=== PATIENT | male | born 1955 | race Caucasian/White ===

== ENCOUNTER 2021-03-05 15:19 | Emergency (ER) | payer MEDICARE ==
[2021-03-05 16:59] VITALS: RESP 20
--- NOTE | 2021-03-05 17:00 | ED ---
General Adult HPI - General Chief complaint: Fall Stated complaint: Fall Time Seen by Provider: 03/05/21 16:39 Source: patient, RN notes reviewed Mode of arrival: ambulatory Limitations: no limitations - History of Present Illness Initial comments: Patient is a pleasant 66-year-old male presenting to the emergency department following a fall. Patient states he was walking his dog when he was tripped. Patient landed on his back however has discomfort of his neck. Patient does have chronic neck and back problems. Patient states his back discomfort is not worse than normal. Patient states his neck discomfort is similar to previous but somewhat worse. Patient states he does have history of neck problems causing a headache feeling stabbing and blurred vision. Patient states he had his again today. Patient states he is actually been having these is 2004 and previously took OxyContin for this. Patient does have history of lumbar surgery and has been told previously should have neck surgery as well. No weakness. Patient denies any head injury. Patient denies any direct trauma to his neck - Related Data Home Medications Medication Instructions Recorded Confirmed Ascorbic Acid [Vitamin C] 500 mg PO DAILY 03/05/21 03/05/21 Cholecalciferol [Vitamin D3 (25 25 mcg PO DAILY 03/05/21 03/05/21 Mcg = 1000 Iu)] Cyanocobalamin (Vitamin B-12) 5,000 mcg PO DAILY 03/05/21 03/05/21 [Vitamin B12] Previous Rx's Medication Instructions Recorded Cyclobenzaprine [Flexeril] 10 mg PO TID PRN #12 tablet 03/05/21 Allergies Allergy/AdvReac Type Severity Reaction Status Date / Time No Known Allergies Allergy Verified 03/05/21 17:29 Review of Systems ROS Statement: Those systems with pertinent positive or pertinent negative responses have been documented in the HPI. ROS Other: All systems not noted in ROS Statement are negative. Constitutional: Denies: fever Eyes: Denies: eye pain ENT: Reports: other (Patient had blurry vision with his fall when his pain was severe). Denies: ear pain Cardiovascular: Denies: chest pain Endocrine: Denies: fatigue Gastrointestinal: Denies: abdominal pain Genitourinary: Denies: dysuria Musculoskeletal: Reports: as per HPI Skin: Denies: rash Neurological: Reports: as per HPI. Denies: weakness Past Medical History Past Medical History: No Reported History History of Any Multi-Drug Resistant Organisms: None Reported Past Surgical History: Back Surgery, Joint Replacement, Orthopedic Surgery Past Psychological History: No Psychological Hx Reported Smoking Status: Current every day smoker Past Alcohol Use History: None Reported Past Drug Use History: None Reported General Exam Limitations: no limitations General appearance: alert, in no apparent distress Head exam: Present: atraumatic Eye exam: Present: normal appearance, PERRL, EOMI ENT exam: Present: normal oropharynx Neck exam: Present: tenderness (Mild diffuse tenderness posterior and right paraspinal) Respiratory exam: Present: normal lung sounds bilaterally Cardiovascular Exam: Present: regular rate, normal rhythm GI/Abdominal exam: Present: soft. Absent: tenderness Extremities exam: Present: normal inspection, full ROM. Absent: tenderness Back exam: Present: normal inspection. Absent: vertebral tenderness Neurological exam: Present: alert, oriented X3, CN II-XII intact. Absent: motor sensory deficit Expanded Sensory exam: Upper Extremity Light Touch: Normal, Lower Extremity Light Touch: Normal Motor strength exam: RUE: 5, LUE: 5, RLE: 5, LLE: 5 Psychiatric exam: Present: normal affect, normal mood Skin exam: Present: normal color Course Vital Signs 03/05/21 16:18 Temperature 98.1 F Pulse Rate 92 Respiratory 20 Rate Blood Pressure 131/72 O2 Sat by Pulse 97 Oximetry Medical Decision Making - Medical Decision Making Patient reevaluated and updated. - Radiology Data Radiology results: image reviewed (Cervical spine x-ray shows multilevel spondylitic changes with large anterior osteophyte pronation. No fracture.) Disposition Clinical Impression: Fall, Cervical strain Disposition: HOME SELF-CARE Condition: Stable Instructions (If sedation given, give patient instructions): Cervical Strain (ED) Additional Instructions: Prescription for muscle relaxers has been sent to pharmacy. Please follow-up with primary care physician and neck doctor in the next couple days for recheck, number provided. Return for increased pain, weakness, worsening or changing symptoms or other concerns. Prescriptions: Cyclobenzaprine [Flexeril] 10 mg PO TID PRN #12 tablet PRN Reason: Pain Is patient prescribed a controlled substance at d/c from ED?: No Referrals: Ovidio Escamilla MD [STAFF PHYSICIAN] - 1-2 days Sami Treadwell DO [Doctor of Osteopathic Medicine] - 1-2 days Time of Disposition: 18:14
--- NOTE | 2021-03-05 17:45 | XR ---
EXAMINATION TYPE: XR cervical spine comp DATE OF EXAM: 03/05/2021 COMPARISON: NONE HISTORY: Pain TECHNIQUE: 5 views FINDINGS: Cervical vertebra have normal alignment. There is degenerative disc space narrowing from C3 to C7. There is large hypertrophic anterior bridging osteophyte formation in the mid and lower cervi mariah spine. There is no compression fracture. There are no cervical ribs. There is uncovertebral spurr ing and mild bilateral neural foraminal narrowing at levels from C4 to C6. IMPRESSION: Multilevel spondylotic changes with large anterior osteophyte formation. No fracture.
[2021-03-05] MEDS ORDERED: ORPHENADRINE 30 MG/ML 2 ML VIAL IM STA (18:12)
[2021-03-05] MEDS ORDERED: HYDROmorphone 1 MG/ML 1 ML SYRINGE IM STA (18:12)
[2021-03-05 18:45] VITALS: BP 115/68; PULSE 88; TEMP 98
== END 2021-03-05 18:34 | disposition home or self-care (01) ==
LOC: EC 15:19
DX: S16.1XXA Strain of muscle, fascia and tendon at neck level, initial encounter (principal); F17.200 Nicotine dependence, unspecified, uncomplicated; W01.0XXA Fall on same level from slipping, tripping and stumbling without subsequent striking against object, initial encounter; Y93.K1 Activity, walking an animal
CPT/HCPCS: 72050; 96372 ×2; 99284; J2360; J1170

== ENCOUNTER 2021-03-19 15:41 | Emergency (ER) | payer MEDICARE, OTHER ==
[2021-03-19 16:47] VITALS: RESP 20; TEMP 97.5
[2021-03-19 17:57] LABS: Basophils % (A) 1 %; Eosinophils # (A) 0.2 k/uL (0-0.7); Eosinophils % (A) 3 %; HGB 17.2 gm/dL (13.0-17.5); Lymphocytes # (A) 0.9 k/uL (1.0-4.8); Lymphocytes % (A) 14 %; MCH 31.6 pg (25.0-35.0); MCHC 33.8 g/dL (31.0-37.0); MCV 93.4 fL (80.0-100.0); Monocytes # (A) 0.5 k/uL (0-1.0); Monocytes % (A) 8 %; Neutrophils # (A) 4.5 k/uL (1.3-7.7); Neutrophils % (A) 72 %; Platelet Count 189 k/uL (150-450); RBC 5.46 m/uL (4.30-5.90); RDW 12.6 % (11.5-15.5); WBC 6.3 k/uL (3.8-10.6)
[2021-03-19 18:06] LABS: INR 0.9 (<1.2); Partial Thromboplastin Time 24.4 sec (22.0-30.0); Prothrombin Time 9.8 sec (9.0-12.0)
[2021-03-19 18:12] LABS: ALT 36 U/L (4-49); AST 43 U/L (17-59); African American GFR (CKD) >90 (>60 ml/min/1.73 sqM); Albumin 4.5 g/dL (3.5-5.0); Alkaline Phosphatase 87 U/L (38-126); Anion Gap 10 mmol/L; Blood Urea Nitrogen 19 mg/dL (9-20); Calcium 9.2 mg/dL (8.4-10.2); Carbon Dioxide 23 mmol/L (22-30); Chloride 102 mmol/L (98-107); Glucose 127 mg/dL (74-99); Non-African American GFR(CKD) 85 (>60 ml/min/1.73 sqM); Potassium 3.9 mmol/L (3.5-5.1); Sodium 135 mmol/L (137-145); Total Bilirubin 0.7 mg/dL (0.2-1.3); Total Protein 7.8 g/dL (6.3-8.2)
--- NOTE | 2021-03-19 20:01 | ED ---
General Adult HPI - General Chief complaint: Chest Pain Stated complaint: Nausea/Vomiting/Diarrhea Time Seen by Provider: 03/19/21 19:17 Source: patient Mode of arrival: ambulatory Limitations: no limitations - History of Present Illness Initial comments: 66 year-old male patient presents to the emergency department for evaluation of diarrhea, lack of appetite, and chest pain. Patient states that diarrhea started three days ago. Reports it being explosive. States he has abdominal cramping before diarrhea episodes. States he has constant left side pain. Denies fever or chills. States he had chest pain starting this morning and last until just about an hour ago. He denies any shortness of breath, sweats, or dizziness. Patient denies any recent rash, cough, shortness of breath, chest pain, back pain, numbness, tingling, dizziness, weakness, hematuria, dysuria, urinary urgency, urinary frequency, headache, visual changes, or any other complaints. - Related Data Home Medications Medication Instructions Recorded Confirmed No Known Home Medications 03/19/21 03/19/21 Allergies Allergy/AdvReac Type Severity Reaction Status Date / Time No Known Allergies Allergy Verified 03/19/21 22:26 Review of Systems ROS Statement: Those systems with pertinent positive or pertinent negative responses have been documented in the HPI. ROS Other: All systems not noted in ROS Statement are negative. Past Medical History Past Medical History: No Reported History History of Any Multi-Drug Resistant Organisms: None Reported Past Surgical History: Back Surgery, Joint Replacement, Orthopedic Surgery Past Psychological History: Anxiety, Bipolar, Depression Smoking Status: Current every day smoker Past Alcohol Use History: None Reported Past Drug Use History: None Reported General Exam Limitations: no limitations General appearance: alert, in no apparent distress, other (This is a well devloped, well nourished adult male patient in no acute distress. V/S upon presentation are temperature 97.5F, pulse 101, respirations 20, blood pressure 108/74, pulse ox 98% on room air.) ENT exam: Present: normal exam, normal oropharynx, mucous membranes moist Respiratory exam: Present: normal lung sounds bilaterally. Absent: respiratory distress, wheezes, rales, rhonchi, stridor Cardiovascular Exam: Present: normal rhythm, tachycardia, normal heart sounds. Absent: systolic murmur, diastolic murmur, rubs, gallop, clicks GI/Abdominal exam: Present: soft, tenderness (Left lower quadrant), normal bowel sounds. Absent: distended, guarding, rebound, rigid Neurological exam: Present: alert, oriented X3, CN II-XII intact Psychiatric exam: Present: normal affect, normal mood Skin exam: Present: warm, dry, intact, normal color. Absent: rash Course Vital Signs 03/19/21 03/19/21 03/19/21 16:43 20:44 23:33 Temperature 97.5 F L Pulse Rate 101 H 84 86 Respiratory 20 20 20 Rate Blood Pressure 108/74 128/93 134/84 O2 Sat by Pulse 98 98 96 Oximetry EKG Findings - EKG Comments: EKG Findings:: EKG obtained at 1722 shows normal sinus rhythm with a ventricular rate of 83, TX interval 138, QRS duration 84, QT 390, QTc 458. No evidence of ST elevation or depression. Medical Decision Making - Medical Decision Making 66-year-old male patient presents to the emergency department today for evaluation of abdominal pain and diarrhea for the last 3 days. Did have some chest pain this morning. Physical examination did reveal some left lower quadrant abdominal tenderness. Labs reviewed and are unremarkable. CT abdomen and pelvis was negative. EKG was unremarkable. Troponin negative. He'll be d ischarged follow-up with the primary care physician for recheck in 1-2 days. Return parameters were discussed in detail. He verbalizes understanding and agrees with this plan. Case discussed with my attending Dr. Milan. - Lab Data Result diagrams: 03/19/21 17:50 03/19/21 17:50 Lab Results 03/19/21 03/19/21 03/19/21 Range/Units 17:29 17:50 17:50 WBC 6.3 (3.8-10.6) k/uL RBC 5.46 (4.30-5.90) m/uL Hgb 17.2 (13.0-17.5) gm/dL Hct 51.0 (39.0-53.0) % MCV 93.4 (80.0-100.0) fL MCH 31.6 (25.0-35.0) pg MCHC 33.8 (31.0-37.0) g/dL RDW 12.6 (11.5-15.5) % Plt Count 189 (150-450) k/uL MPV 8.0 Neutrophils % 72 % Lymphocytes % 14 % Monocytes % 8 % Eosinophils % 3 % Basophils % 1 % Neutrophils # 4.5 (1.3-7.7) k/uL Lymphocytes # 0.9 L (1.0-4.8) k/uL Monocytes # 0.5 (0-1.0) k/uL Eosinophils # 0.2 (0-0.7) k/uL Basophils # 0.0 (0-0.2) k/uL PT 9.8 (9.0-12.0) sec INR 0.9 (<1.2) APTT 24.4 (22.0-30.0) sec Sodium 135 L (137-145) mmol/L Potassium 3.9 (3.5-5.1) mmol/L Chloride 102 (98-107) mmol/L Carbon Dioxide 23 (22-30) mmol/L Anion Gap 10 mmol/L BUN 19 (9-20) mg/dL Creatinine 0.94 (0.66-1.25) mg/dL Est GFR (CKD-EPI)AfAm >90 (>60 ml/min/1.73 sqM) Est GFR (CKD-EPI)NonAf 85 (>60 ml/min/1.73 sqM) Glucose 127 H (74-99) mg/dL Calcium 9.2 (8.4-10.2) mg/dL Magnesium 2.0 (1.6-2.3) mg/dL Total Bilirubin 0.7 (0.2-1.3) mg/dL AST 43 (17-59) U/L ALT 36 (4-49) U/L Alkaline Phosphatase 87 (38-126) U/L Troponin I (0.000-0.034) ng/mL Total Protein 7.8 (6.3-8.2) g/dL Albumin 4.5 (3.5-5.0) g/dL Lipase (23-300) U/L Stool Occult Blood (Negative) Coronavirus (PCR) (Not Detectd) 03/19/21 03/19/21 03/19/21 Range/Units 17:50 19:04 19:40 WBC (3.8-10.6) k/uL RBC (4.30-5.90) m/uL Hgb (13.0-17.5) gm/dL Hct (39.0-53.0) % MCV (80.0-100.0) fL MCH (25.0-35.0) pg MCHC (31.0-37.0) g/dL RDW (11.5-15.5) % Plt Count (150-450) k/uL MPV Neutrophils % % Lymphocytes % % Monocytes % % Eosinophils % % Basophils % % Neutrophils # (1.3-7.7) k/uL Lymphocytes # (1.0-4.8) k/uL Monocytes # (0-1.0) k/uL Eosinophils # (0-0.7) k/uL Basophils # (0-0.2) k/uL PT (9.0-12.0) sec INR (<1.2) APTT (22.0-30.0) sec Sodium (137-145) mmol/L Potassium (3.5-5.1) mmol/L Chloride (98-107) mmol/L Carbon Dioxide (22-30) mmol/L Anion Gap mmol/L BUN (9-20) mg/dL Creatinine (0.66-1.25) mg/dL Est GFR (CKD-EPI)AfAm (>60 ml/min/1.73 sqM) Est GFR (CKD-EPI)NonAf (>60 ml/min/1.73 sqM) Glucose (74-99) mg/dL Calcium (8.4-10.2) mg/dL Magnesium (1.6-2.3) mg/dL Total Bilirubin (0.2-1.3) mg/dL AST (17-59) U/L ALT (4-49) U/L Alkaline Phosphatase (38-126) U/L Troponin I <0.012 (0.000-0.034) ng/mL Total Protein (6.3-8.2) g/dL Albumin (3.5-5.0) g/dL Lipase (23-300) U/L Stool Occult Blood Negative (Negative) Coronavirus (PCR) Not Detected (Not Detectd) 03/19/21 Range/Units 19:40 WBC (3.8-10.6) k/uL RBC (4.30-5.90) m/uL Hgb (13.0-17.5) gm/dL Hct (39.0-53.0) % MCV (80.0-100.0) fL MCH (25.0-35.0) pg MCHC (31.0-37.0) g/dL RDW (11.5-15.5) % Plt Count (150-450) k/uL MPV Neutrophils % % Lymphocytes % % Monocytes % % Eosinophils % % Basophils % % Neutrophils # (1.3-7.7) k/uL Lymphocytes # (1.0-4.8) k/uL Monocytes # (0-1.0) k/uL Eosinophils # (0-0.7) k/uL Basophils # (0-0.2) k/uL PT (9.0-12.0) sec INR (<1.2) APTT (22.0-30.0) sec Sodium (137-145) mmol/L Potassium (3.5-5.1) mmol/L Chloride (98-107) mmol/L Carbon Dioxide (22-30) mmol/L Anion Gap mmol/L BUN (9-20) mg/dL Creatinine (0.66-1.25) mg/dL Est GFR (CKD-EPI)AfAm (>60 ml/min/1.73 sqM) Est GFR (CKD-EPI)NonAf (>60 ml/min/1.73 sqM) Glucose (74-99) mg/dL Calcium (8.4-10.2) mg/dL Magnesium (1.6-2.3) mg/dL Total Bilirubin (0.2-1.3) mg/dL AST (17-59) U/L ALT (4-49) U/L Alkaline Phosphatase (38-126) U/L Troponin I (0.000-0.034) ng/mL Total Protein (6.3-8.2) g/dL Albumin (3.5-5.0) g/dL Lipase 56 (23-300) U/L Stool Occult Blood (Negative) Coronavirus (PCR) (Not Detectd) - Radiology Data Radiology results: report reviewed, image reviewed CT abdomen and pelvis with contrast was obtained. Report was reviewed in its en tirety. Impression by Dr. Reese shows no acute abnormality of the abdomen and pelvis. Multilevel spinal surgery. Minimal sigmoid diverticulosis. Disposition Clinical Impression: Diarrhea, Abdominal pain Disposition: HOME SELF-CARE Condition: Good Instructions (If sedation given, give patient instructions): Acute Diarrhea (ED), Abdominal Pain (ED) Additional Instructions: Cervical liquid diet and advance as tolerated. Follow up with your primary care physician for recheck in 1-2 days. Return for any new, worsening, or concerning symptoms. Is patient prescribed a controlled substance at d/c from ED?: No Referrals: None,Stated [Primary Care Provider] - 1-2 days Time of Disposition: 23:12
--- NOTE | 2021-03-19 20:53 | CT ---
EXAMINATION TYPE: CT abdomen pelvis w con DATE OF EXAM: 03/19/2021 COMPARISON: None HISTORY: LLQ pain/tenderness, diarrhea CT DLP: 951.2 mGycm Automated exposure control for dose reduction was used. CONTRAST: Performed with IV Contrast, patient injected with 100 mL of Isovue 300. Exam from the diaphragm to the floor the pelvis with IV contrast. There is metal artifact from multilevel posterior fusion surgery in the thoracic and lumbar spine. Vianey ng bases are clear. There is no pleural effusion. Heart size is normal. There is no pericardial effus ion. Liver spleen stomach pancreas gallbladder appear normal. The bile ducts are not dilated. There is no adrenal mass. Kidneys show satisfactory contrast opacification. There is no hydronephrosi s. Ureters are not dilated. There is no retroperitoneal adenopathy. Bladder distends smoothly. There is no inguinal hernia. There is no free fluid in the pelvis. There is no mesenteric edema. There is no ascites or free air. There is no sign of a bowel obstructio n. Appendix appears normal. There is no evidence of focal bone destruction. Lumbar vertebra have fair ly normal alignment. The bony pelvis is intact. The hip joints are intact. There are a few sigmoid di verticula. IMPRESSION: No acute abnormality of the abdomen pelvis. Multilevel spinal surgery. Minimal sigmoid diverticulosis .
[2021-03-19] MEDS ORDERED: SODIUM CHLORIDE 0.9% 1,000 ML IV ONE (21:49)
[2021-03-19] MEDS ORDERED: ACET/COD 300 MG/30 MG STARTER PACK 6 TAB BTL PO STA (22:37)
[2021-03-19 23:35] VITALS: BP 134/84; PULSE 86
== END 2021-03-19 23:34 | disposition home or self-care (01) ==
LOC: EC 15:41
DX: R19.7 Diarrhea, unspecified (principal); R10.32 Left lower quadrant pain; F41.9 Anxiety disorder, unspecified; F31.9 Bipolar disorder, unspecified; F17.200 Nicotine dependence, unspecified, uncomplicated; Z20.822 Contact with and (suspected) exposure to COVID-19
CPT/HCPCS: 99285; 96360; 36415; 80053; 83690; 83735; 84484; 85025; 85610; 85730; 82272; 87493; 87635; 74177; Q9967; 83630; 87045; 87046

== ENCOUNTER → 2021-04-23 | Outpatient (CLI) | payer MEDICARE ==
--- NOTE | 2021-04-23 16:53 | XR ---
EXAMINATION TYPE: XR cervical spine comp DATE OF EXAM: 04/23/2021 COMPARISON: None HISTORY: 66-year-old male neck pain TECHNIQUE: 5 views including flexion-extension FINDINGS: No predental space widening or prevertebral soft tissue swelling. Moderate disc/endplate degenerative change mid to lower cervical spine with bulky anterior endplate spondylosis C3-C6 levels. More moder ate to advanced uncovertebral joint arthropathy. There is bony change impresses on the posterior wall mildly narrowing the hypopharynx and cervical esophagus. C6-C7 and C7-T1 are obscured by the patient 's shoulders and not assessed. Remaining alignment is maintained. IMPRESSION: 1. Bulky changes of DISH from at least C3 through C6 levels impressing on the posterior wall and mild ly narrowing the hypopharynx and cervical esophagus. 2. Moderate multilevel spondylotic changes mid to lower cervical spine. 3. The C6-C7 level and below is obscured by the patient's shoulders and not assessed. No malalignment or dynamic subluxation along the visualized portions.
== END | disposition home or self-care (01) ==
LOC: RADXRMAIN 15:07
PROVIDERS: ATTEND Orthopaedic Surgery
DX: M47.812 Spondylosis without myelopathy or radiculopathy, cervical region (principal)
CPT/HCPCS: 72050

== ENCOUNTER → 2021-05-07 | Outpatient (CLI) | payer MEDICARE ==
--- NOTE | 2021-05-07 13:06 | CT ---
EXAMINATION TYPE: CT cervical spine wo con DATE OF EXAM: 05/07/2021 COMPARISON: None HISTORY: Cervicalgia CT DLP: 365.[address] of the cervical spine was performed with bone and soft tissue window settings submitted . Coronal and sagittal reconstruction is obtained. There is normal alignment and prevertebral soft tissues. I do not see evidence for fracture or sublu xation. C2-3: Within normal limits At C3-4: Moderate degenerative disc space narrowing with posterior disc bulge. Effacement ventral the mariah sac. No evidence for disc herniation or central stenosis. Mild bilateral foraminal encroachment. Large ventral spurs noted. C4-5: Moderate to severe degenerative disc space narrowing. Posterior disc bulge with partial encapsu lating spur. Effacement of the ventral thecal sac with mild central stenosis. Bilateral foraminal enc roachment identified. C5-6:Moderate degenerative disc space narrowing with posterior disc bulge. Effacement ventral thecal sac. No evidence for disc herniation or central stenosis. Mild bilateral foraminal encroachment. Larg e ventral spurs noted. C6-7:Moderate degenerative disc space narrowing with posterior disc bulge. Effacement ventral thecal sac. No evidence for disc herniation or central stenosis. Mild bilateral foraminal encroachment. Larg e ventral spurs noted. C7-T1: Within normal limits IMPRESSION: 1. Multilevel degenerative disc disease with posterior disc bulge. Central stenosis noted at C4-5. Bi lateral neural foraminal encroachment as outlined above. Ventral spondylosis.
--- NOTE | 2021-05-07 13:15 | CT ---
EXAMINATION TYPE: CT thoracic spine wo con, CT lumbar spine wo con DATE OF EXAM: 05/07/2021 COMPARISON: None HISTORY: spine pain CT DLP: 529.5 (accession [id number]), 449.10 (accession [id number]) mGycm Unenhanced CT of the thoracic and lumbar spine was performed. Bone and soft tissue window settings a re submitted as well as coronal and sagittal reconstructions. Thoracic spine: Moderate to severe degenerative disc space narrowing extending from T3-4 through T11- T12. There is mild posterior disc bulging. No disc herniation seen. There is ventral spondylosis. No central stenosis. No fracture or malalignment. Pedicular screws begin at the T10 level. Lumbar spine: L1-L2: Laminectomy with fusion. Pedicular screws are in place. Alignment is anatomic. Streak artifact limits evaluation. No definite evidence for recurrent or residual disease. L2-L3: Laminectomy with fusion. Pedicular screws are in place. Alignment is anatomic. Intervertebral spacer noted. Streak artifact limits evaluation. No definite evidence for recurrent or residual disea se. L3-L4: Laminectomy with fusion. Pedicular screws are in place. Alignment is anatomic. Intervertebral spacer noted. Streak artifact limits evaluation. No definite evidence for recurrent or residual disea se. L4-L5: Laminectomy with fusion. Pedicular screws are in place. Alignment is anatomic. Intervertebral spacer noted. Streak artifact limits evaluation. No definite evidence for recurrent or residual disea se. L5-S1: Grade 1 anterolisthesis L5 on S1 measuring approximately 5 mm. Decompressive laminectomy herr es noted. There is a hypertrophic change identified as well as distortion of the thecal sac. Recurren t central stenosis would be difficult to exclude. No paraspinal masses are identified. Lumbar segments are free of fracture. IMPRESSION: 1. Multilevel decompressive laminectomy and fusion with pedicular screws. 2. Streak artifact limits evaluation. Recurrent stenosis at L5-S1 is difficult to exclude.
== END | disposition home or self-care (01) ==
LOC: RADCTMAIN 11:43
PROVIDERS: ATTEND Orthopaedic Surgery
DX: M51.34 Other intervertebral disc degeneration, thoracic region (principal); M51.24 Other intervertebral disc displacement, thoracic region; M47.814 Spondylosis without myelopathy or radiculopathy, thoracic region; M43.17 Spondylolisthesis, lumbosacral region; M47.812 Spondylosis without myelopathy or radiculopathy, cervical region; M48.02 Spinal stenosis, cervical region; M50.223 Other cervical disc displacement at C6-C7 level; M50.323 Other cervical disc degeneration at C6-C7 level
CPT/HCPCS: 72125; 72128; 72131